=== PATIENT | male | born 1980 | race Caucasian/White ===

== ENCOUNTER 2018-01-10 09:42 | Emergency (ER) | payer OTHER ==
[~2018-01-10] VITALS: Ht 182.9 cm; Wt 77.6 kg
[2018-01-10] MEDS ORDERED: PERCOCET 5-3251 EACH PO (13:17)
[2018-01-10] MEDS ORDERED: CELEBREX200MG PO (13:17)
== END 2018-01-10 13:34 | disposition home or self-care (01) ==
LOC: ER 09:42
DX: S62.316A Displaced fracture of base of fifth metacarpal bone, right hand, initial encounter for closed fracture (principal); S60.041A Contusion of right ring finger without damage to nail, initial encounter; W22.8XXA Striking against or struck by other objects, initial encounter; Y93.89 Activity, other specified; Y92.018 Other place in single-family (private) house as the place of occurrence of the external cause; Y99.8 Other external cause status